=== PATIENT | female | born 2000 ===

== ENCOUNTER 2022-01-21 18:33 | Emergency (ER) | payer SELFPAY ==
[2022-01-21 20:06] VITALS: BP 116/69
[2022-01-21 20:40] LABS: Bilirubin,Urine NEG (Negative); Blood,Urine MOD (Negative); Color,Urine Yellow (Yellow); Mucus,Urine 1+ /HPF; Urobilinogen,Urine < 2.0 mg/dL (<2.0)
[2022-01-21 20:42] LABS: WBC,Urine > 182.0 /HPF (0.0-6.0)
[2022-01-21 21:05] LABS: Basophils # (Auto) 0.1 K/mm3 (0.0-0.1); Basophils % (Auto) 0.4 % (0.0-1.8); Eosinophils # (Auto) 0.2 K/mm3 (0.0-0.4); Hematocrit 33.6 % (30.3-42.9); Lymphocytes # (Auto) 1.2 K/mm3 (1.2-5.4); Lymphocytes % (Auto) 6.4 % (13.4-35.0); Mean Corpuscular HGB Conc 33 % (30-34); Mean Corpuscular Volume 82 fl (79-97); Monocytes # (Auto) 2.3 K/mm3 (0.0-0.8); Monocytes % (Auto) 12.3 % (0.0-7.3); Platelet Count 422 K/mm3 (140-440); Red Cell Distribution Width 14.9 % (13.2-15.2)
[2022-01-21 21:26] LABS: Alanine Aminotransferase 16 units/L (7-56); Albumin 4.1 g/dL (3.9-5); Blood Urea Nitrogen 8 mg/dL (7-17); Calcium 9.4 mg/dL (8.4-10.2); Hemolysis Index 7
[2022-01-21 21:28] LABS: BUN/Creatinine Ratio 20
[2022-01-21] MEDS ORDERED: MORPHINE 4 MG/1 ML INJ IV ONE (21:37)
[2022-01-21] MEDS ORDERED: SODIUM CHLORIDE 0.9% 1000 ML 1,000 ML IV ONE (21:37)
[2022-01-21] MEDS ORDERED: ONDANSETRON 4 MG/2 ML INJ IV ONE (21:37)
[2022-01-21] MEDS ORDERED: FAMOTIDINE 20 MG/2 ML INJ IV ONE (21:37)
[2022-01-21] MEDS ORDERED: cefTRIAXone/NS 1 GM/50 ML 1 GM/50 ML BAG IV ONE (21:38)
--- NOTE | 2022-01-21 23:41 | Ultrasound Report ---
ULTRASOUND ABDOMEN, LIMITED (RIGHT UPPER QUADRANT) INDICATION / CLINICAL INFORMATION: RUQ and right flank pain. COMPARISON: None available. FINDINGS: PANCREAS: Visualized portion shows no significant abnormality. LIVER: No significant abnormality. Normal hepatopedal blood flow in the main portal vein. GALLBLADDER: No significant abnormality. BILE DUCTS: No significant abnormality. Common bile duct measures 4-5 mm. FREE FLUID: None. ADDITIONAL FINDINGS: None. IMPRESSION: 1. No significant sonographic abnormality of the right upper quadrant. Of note, images of the right k idney were not obtained. There is concern for right hydronephrosis, additional imaging could be perfo rmed. Signer Name: Dangelo Corona MD Signed: 01/21/2022 11:36 PM Workstation Name: [id number]
--- NOTE | 2022-01-21 23:43 | Ultrasound Report ---
OBSTETRIC ULTRASOUND INDICATION: , abdominal pain COMPARISON: No prior relevant imaging studies are available for comparison. TECHNIQUE: Transabdominal imaging was performed. FINDINGS: Single viable intrauterine is identified. lie: Cephalic. Heart rate: 149 bpm. measurements are as follows: Biparietal diameter 4.6 cm, 20 weeks 0 days Head circumference 17.2 cm, 19 weeks 5 days Abdominal circumference 13.2 cm, 18 weeks 5 days Femur length 3.1 cm, 19 weeks 5 days Amniotic fluid index is subjectively within normal limits. There is a grade 1 anterior placenta. Hypo echoic focus within the placenta measuring 4.5 cm in maximum diameter may be a placental lanza. Cervix measures 3 cm. CONCLUSION: Single viable intrauterine currently in cephalic presentation with sonographic gestational age of 19 weeks 4 days. Amniotic fluid index is within normal limits. Signer Name: Dangelo Corona MD Signed: 01/21/2022 11:38 PM Workstation Name: [id number]
--- NOTE | 2022-01-22 00:25 | Emergency Department Report ---
ED Abdominal Pain HPI - General Chief Complaint: Abdominal Pain Stated Complaint: 18WKS /SEVERE ABD PAIN Source: patient Mode of arrival: Ambulatory Limitations: No Limitations - History of Present Illness Initial Comments: Patient is a A0 21-year-old female who is approximately 18 weeks gestation presents to the ED with complaint of acute onset persistent right upper quadrant and right flank pain that radiates to the lower back with urinary frequency and urgency and nausea for the last 8 hours. Patient states that the pain has been constant and persistent, worse with movement and sharp. Patient states that she did not take any medication prior to arrival in the ED. Patient denies fever, chills, vomiting, vaginal bleeding, vaginal discharge, traumatic injury, fall, heavy lifting, chest pain or shortness of breath, numbness and tingling or weakness of lower and upper extremities bilaterally or headache. MD Complaint: abdominal pain (Right upper quadrant and right flank pain), flank pain (Right flank pain) -: Sudden, hour(s) (8) Location: RUQ, R flank Radiation: RUQ, R flank Migration to: no migration Severity: severe Severity scale (0 -10): 8 Quality: aching, sharp Consistency: constant Improves With: nothing Worsens With: movement Context: other (18 weeks gestation) Associated Symptoms: denies other symptoms, nausea, anorexia. denies: vomiting, diarrhea, fever, constipation, dysuria, hematemesis, hematochezia, melena, hematuria, syncope, other - Related Data Previous Rx's Medication Instructions Recorded Last Taken Type Acetaminophen [Tylenol] 500 mg PO Q6HR PRN #30 tablet 01/22/22 Unknown Rx Ondansetron [Zofran Odt] 4 mg PO Q6HR PRN #15 tab.rapdis 01/22/22 Unknown Rx cephALEXin [Keflex] 500 mg PO Q6HR #40 capsule 01/22/22 Unknown Rx Allergies Allergy/AdvReac Type Severity Reaction Status Date / Time No Known Allergies Allergy Verified 01/21/22 19:55 ED Review of Systems ROS: Stated complaint: 18WKS /SEVERE ABD PAIN Other details as noted in HPI Constitutional: denies: chills, fever Eyes: denies: eye pain, eye discharge, vision change ENT: denies: ear pain, throat pain Respiratory: denies: cough, shortness of breath, wheezing Cardiovascular: denies: chest pain, palpitations Endocrine: no symptoms reported Gastrointestinal: abdominal pain (Right upper quadrant and right flank pain), nausea. denies: vomiting, diarrhea, constipation, hematemesis, hematochezia Genitourinary: urgency, frequency. denies: dysuria, discharge Musculoskeletal: back pain (Low back pain), myalgia. denies: joint swelling, arthralgia Skin: denies: rash, lesions Neurological: denies: headache, weakness, paresthesias Psychiatric: denies: anxiety, depression Hematological/Lymphatic: denies: easy bleeding, easy bruising ED Past Medical Hx - Past Medical History Previous Medical History?: Yes Hx Asthma: Yes - Surgical History Past Surgical History?: No - Medications Home Medications: Home Medications Medication Instructions Recorded Confirmed Last Taken Type Acetaminophen [Tylenol] 500 mg PO Q6HR PRN #30 tablet 01/22/22 Unknown Rx Ondansetron [Zofran Odt] 4 mg PO Q6HR PRN #15 tab.rapdis 01/22/22 Unknown Rx cephALEXin [Keflex] 500 mg PO Q6HR #40 capsule 01/22/22 Unknown Rx ED Physical Exam - General Limitations: No Limitations General appearance: alert, in no apparent distress - Head Head exam: Present: atraumatic, normocephalic, normal inspection - Eye Eye exam: Present: normal appearance, PERRL, EOMI Pupils: Present: normal accommodation - ENT ENT exam: Present: normal exam, normal orophraynx, mucous membranes moist, TM's normal bilaterally, normal external ear exam - Neck Neck exam: Present: normal inspection, full ROM. Absent: tenderness - Respiratory Respiratory exam: Present: normal lung sounds bilaterally. Absent: respiratory distress, wheezes, rales, chest wall tenderness, accessory muscle use, decreased breath sounds, prolonged expiratory - Cardiovascular Cardiovascular Exam: Present: normal rhythm, tachycardia, normal heart sounds. Absent: systolic murmur, diastolic murmur, rubs, gallop - GI/Abdominal GI/Abdominal exam: Present: soft, tenderness (Palpable right upper quadrant and right flank tenderness, negative Love sign), normal bowel sounds. Absent: guarding, rebound, hyperactive bowel sounds, hypoactive bowel sounds, organomegaly - Extremities Exam Extremities exam: Present: normal inspection, full ROM, normal capillary refill - Back Exam Back exam: Present: normal inspection, full ROM, tenderness (Palpable lumbosacral paraspinal musculoskeletal tenderness), CVA tenderness (R) (Right CVA tenderness), muscle spasm, paraspinal tenderness. Absent: CVA tenderness (L) - Neurological Exam Neurological exam: Present: alert, oriented X3, CN II-XII intact, normal gait, reflexes normal - Psychiatric Psychiatric exam: Present: normal affect, normal mood - Skin Skin exam: Present: warm, dry, intact, normal color. Absent: rash ED Course Vital Signs 01/21/22 01/21/22 19:52 21:55 Temperature 99.2 F Pulse Rate 116 H Respiratory 18 14 Rate Blood Pressure 116/69 [Right] O2 Sat by Pulse 98 Oximetry ED Medical Decision Making - Lab Data Result diagrams: 01/21/22 20:35 01/21/22 20:35 - Radiology Data Radiology results: report reviewed, image reviewed [facility] [address] [place] [address] Ultrasound Report Signed Patient: GEORGES COSTA Marilyn#: [id number] : 2000 Acct:[id number] Age/Sex: 21 / F ADM Date: 01/21/22 Loc: ED Attending Dr: Ordering Physician: JASON MCINTYRE Date of Service: 01/21/22 Procedure(s): US OB >= 14 weeks Fetus Accession Number(s): [id number] cc: JASON MCINTYRE OBSTETRIC ULTRASOUND INDICATION: , abdominal pain COMPARISON: No prior relevant imaging studies are available for comparison. TECHNIQUE: Transabdominal imaging was performed. FINDINGS: Single viable intrauterine is identified. lie: Cephalic. Heart rate: 149 bpm. measurements are as follows: Biparietal diameter 4.6 cm, 20 weeks 0 days Head circumference 17.2 cm, 19 weeks 5 days Abdominal circumference 13.2 cm, 18 weeks 5 days Femur length 3.1 cm, 19 weeks 5 days Amniotic fluid index is subjectively within normal limits. There is a grade 1 anterior placenta. Hypoechoic focus within the placenta measuring 4.5 cm in maximum diameter may be a placental lanza. Cervix measures 3 cm. CONCLUSION: Single viable intrauterine currently in cephalic presentation with sonographic gestational age of 19 weeks 4 days. Amniotic fluid index is within normal limits. Signer Name: Dangelo Corona MD Signed: 01/21/2022 11:38 PM Workstation Name: [id number] Transcribed By: SW Dictated By: Dangelo Corona MD Electronically Authenticated By: Dangelo Corona MD Signed Date/Time: 01/21/222337 DD/ 35 TD/TT: [facility] [address] [place] [address] Ultrasound Report Signed Patient: GEORGES COSTA Marilyn#: [id number] : 2000 Acct:[id number] Age/Sex: 21 / F ADM Date: 01/21/22 Loc: ED Attending Dr: Ordering Physician: JOHNSON SALEEM Date of Service: 01/21/22 Procedure(s): US abdomen limited Accession Number(s): [id number] cc: JOHNSON SALEEM ULTRASOUND ABDOMEN, LIMITED (RIGHT UPPER QUADRANT) INDICATION / CLINICAL INFORMATION: RUQ and right flank pain. COMPARISON: None available. FINDINGS: PANCREAS: Visualized portion shows no significant abnormality. LIVER: No significant abnormality. Normal hepatopedal blood flow in the main portal vein. GALLBLADDER: No significant abnormality. BILE DUCTS: No significant abnormality. Common bile duct measures 4-5 mm. FREE FLUID: None. ADDITIONAL FINDINGS: None. IMPRESSION: 1. No significant sonographic abnormality of the right upper quadrant. Of note, images of the right kidney were not obtained. There is concern for right hydronephrosis, additional imaging could be performed. Signer Name: Dangelo Corona MD Signed: 01/21/2022 11:36 PM Workstation Name: [id number] Transcribed By: SYDNEY Dictated By: Dangelo Corona MD Electronically Authenticated By: Dangelo Corona MD Signed Date/Time: 01/21/222335 DD/ 34 TD/TT: - Medical Decision Making This is a A0 21-year-old female who is approximately 18 weeks gestation presents to the ED with complaint of acute onset persistent right upper quadrant and right flank pain that radiates to the lower back with urinary frequency and urgency and nausea for the last 8 hours. Patient states that the pain has been constant and persistent, worse with movement and sharp. Patient states that she did not take any medication prior to arrival in the ED. in the ED, patient is alert and oriented x3 and is not in any distress. Patient is afebrile but tachycardic in triage and appears to be in significant pain. Patient was treated for pain in the ED and was given antiemetics, antacids and normal saline 1 L IV bolus x1. All lab test results were reviewed and are all nonactionable except for leukocytosis of 18,600, and significant urinary tract infection in urinalysis. Patient also received Rocephin 1 g IV x1. The rest of the lab test results were nonactionable. Transvaginal ultrasound showed a single viable intrauterine currently in cephalic presentation with sonographic gestational age of 19 weeks 4 days with a heart rate of 149 bpm. Amniotic fluid index is within normal limits. Gallbladder ultrasound showed no significant sonographic abnormality of the right upper quadrant. Of note, images of the right kidney were not obtained. There is concern for right hydronephrosis, additional imaging could be performed. On reevaluation, patient's pain is well controlled medication. Patient was discharged home on antibiotics and pain medications and advised to follow-up with her primary care physician in 5 to 7 days for reevaluation or return to the ED immediately if symptoms get worse. - Differential Diagnosis UTI; kidney stone; gallstones; cholecystitis; pyelonephritis; muscle spasm Critical care attestation.: If time is entered above; I have spent that time in minutes in the direct care of this critically ill patient, excluding procedure time. ED Disposition Clinical Impression: Acute urinary tract infection, Acute right flank pain, Abdominal pain during in second trimester Disposition: HOME / SELF CARE / HOMELESS Is pt being admited?: No Does the pt Need Aspirin: No Condition: Stable Instructions: Abdominal Pain (ED), Flank Pain, Adult, [id number], and Urinary Tract Infection, Urinary Tract Infection, Adult, [id number], Abdominal Pain During , [id number] Additional Instructions: All lab test results were reviewed and are all nonactionable except for leukocytosis of 18,600, and significant urinary tract infection in urinalysis. The rest of the lab test results were nonactionable. Transvaginal ultrasound showed a single viable intrauterine currently in cephalic presentation with sonographic gestational age of 19 weeks 4 days with a heart rate of 149 bpm. Amniotic fluid index is within normal limits. Gallbladder ultrasound showed no significant sonographic abnormality of the right upper quadrant. Of note, images of the right kidney were not obtained. There is concern for right hydronephrosis, additional imaging could be performed. Therefore take medications with food, drink plenty of fluids and follow-up with your [employer] physician in 5 to 7 days for reevaluation. Return to the ED immediately if symptoms get worse. Prescriptions: Acetaminophen [Tylenol] 500 mg PO Q6HR PRN #30 tablet PRN Reason: Pain , Severe (7-10) cephALEXin [Keflex] 500 mg PO Q6HR #40 capsule Ondansetron [Zofran Odt] 4 mg PO Q6HR PRN #15 tab.rapdis PRN Reason: Nausea Referrals: AL LYON MD [Staff Physician] - 3-5 Days Time of Disposition: 00:28 Print Language: ALBANIAN
== END 2022-01-22 01:30 | disposition home or self-care (01) ==
LOC: ED 18:33
DX: O23.42 Unspecified infection of urinary tract in pregnancy, second trimester (principal); N39.0 Urinary tract infection, site not specified; J45.909 Unspecified asthma, uncomplicated; Z3A.18 18 weeks gestation of pregnancy; Z79.899 Other long term (current) drug therapy
CPT/HCPCS: 36415; 76705; 76805; 80053; 81001; 84702; 85025; 96365; 96375; 99284; J0696; J2270; J2405; J3490; J7030; Q0162

== ENCOUNTER 2022-06-12 09:46 | Outpatient (CLI) | payer MEDICAID ==
[2022-06-12 10:44] VITALS: BP 109/71
== END 2022-06-12 11:10 | disposition home or self-care (01) ==
LOC: TRG 09:46 → APU 09:47 → TRG 11:10
PROVIDERS: ATTEND Obstetrics & Gynecology
DX: Z34.93 Encounter for supervision of normal pregnancy, unspecified, third trimester (principal); Z3A.39 39 weeks gestation of pregnancy
CPT/HCPCS: 59025

== ENCOUNTER 2022-06-18 04:41 | Inpatient (IN) | payer MEDICAID ==
[2022-06-18] MEDS ORDERED: LIDOCAINE (2%) 20 MG/1 ML VIAL 20 ML MDV INFILTRATI NR (06:44)
[2022-06-18] MEDS ORDERED: METHYLERGONOVINE MALEATE 0.2 MG/ML VIAL IM PRN (06:44)
[2022-06-18] MEDS ORDERED: ACETAMINOPHEN 325 MG TAB PO PRN ×2 (07:00→22:23)
[2022-06-18] MEDS ORDERED: ONDANSETRON 4 MG/2 ML INJ IV PRN ×2 (07:00→22:23)
[2022-06-18] MEDS ORDERED: OXYTOCIN DRIP 30 UNITS/500 ML BAG IV SCH ×2 (07:00)
[2022-06-18] MEDS ORDERED: OXYTOCIN 10 UNIT/1 ML INJ IM PRN (07:00)
[2022-06-18] MEDS ORDERED: CARBOPROST TROMETHAMINE 250 MCG/1 ML INJ IM PRN (07:00)
[2022-06-18] MEDS ORDERED: BUTORPHANOL 2 MG/1 ML INJ IV PRN (07:00)
[2022-06-18] MEDS ORDERED: miSOPROStol 200 MCG TAB PR PRN (07:00)
[2022-06-18] MEDS ORDERED: ePHEDrine SULFATE 50 MG/1 ML INJ IV PRN (07:00)
[2022-06-18] MEDS ORDERED: LOPERAMIDE 2 MG CAP PO PRN (07:00)
[2022-06-18] MEDS ORDERED: fentaNYL 100 MCG/2 ML INJ IV PRN (07:00)
[2022-06-18] MEDS ORDERED: LACTATED RINGERS 1,000 ML IV SCH (07:00)
[2022-06-18] MEDS ORDERED: NALOXONE 0.4 MG/1 ML INJ IV PRN (07:00)
[2022-06-18] MEDS ORDERED: TERBUTALINE 1 MG/1 ML INJ SUB-Q PRN (07:00)
[2022-06-18 07:27] LABS: Hematocrit 38.3 % (30.3-42.9); Hemoglobin 12.9 gm/dl (10.1-14.3); Mean Corpuscular HGB Conc 34 % (30-34); Mean Corpuscular Volume 84 fl (79-97); Platelet Count 345 K/mm3 (140-440); Red Blood Count 4.58 M/mm3 (3.65-5.03); Red Cell Distribution Width 15.9 % (13.2-15.2)
[2022-06-18 11:01] LABS: Hematocrit 37.3 % (30.3-42.9); Hemoglobin 12.4 gm/dl (10.1-14.3); Mean Corpuscular HGB Conc 33 % (30-34); Mean Corpuscular Volume 84 fl (79-97); Platelet Count 330 K/mm3 (140-440); Red Blood Count 4.44 M/mm3 (3.65-5.03); Red Cell Distribution Width 15.5 % (13.2-15.2)
[2022-06-18] MEDS ORDERED: MINERAL OIL 30 ML ORAL LIQD ONE (12:12)
--- NOTE | 2022-06-18 16:40 | History and Physical Report ---
History of Present Illness Date of examination: 06/18/22 Date of admission: 06/18/22 06:44 History of present illness: 21-year-old at 39+6 weeks who presents for induction of labor secondary to gestational hypertension not on medication. The patient initiated care in the first trimester of her . Her course is complicated by history of pyelonephritis during the and history of genital herpes for which the patient was on suppression therapy. She denies any recent prodrome. The patient is negative for GBS Past History Past Medical History: no pertinent history Past Surgical History: no surgical history Social history: single - Obstetrical History Expected Date of Delivery: 06/19/22 Actual Gestation: 39 Week(s) 6 Day(s) : 1 Para: 0 Hx # Term Pregnancies: 0 Number of Pregnancies: 0 Spontaneous Abortions: 0 Induced : 0 Number of Living Children: 0 Medications and Allergies Allergies Allergy/AdvReac Type Severity Reaction Status Date / Time No Known Allergies Allergy Verified 01/21/22 19:55 Home Medications Medication Instructions Recorded Confirmed Last Taken Type Acetaminophen [Tylenol] 500 mg PO Q6HR PRN #30 tablet 01/22/22 Unknown Rx Ondansetron [Zofran Odt] 4 mg PO Q6HR PRN #15 tab.rapdis 01/22/22 Unknown Rx cephALEXin [Keflex] 500 mg PO Q6HR #40 capsule 01/22/22 Unknown Rx Active Meds: Active Medications Acetaminophen (Acetaminophen 325 Mg Tab) 650 mg PO Q4H PRN PRN Reason: Pain, Mild (1-3) Butorphanol Tartrate (Butorphanol 2 Mg/1 Ml Inj) 1 mg IV Q2H PRN PRN Reason: Pain, Moderate(4-6) LABOR PAIN Carboprost Tromethamine (Carboprost Tromethamine 250 Mcg/1 Ml Inj) 250 mcg IM ONCE PRN PRN Reason: Uterine Bleeding Ephedrine Sulfate (Ephedrine Sulfate 50 Mg/1 Ml Inj) 10 mg IV Q2M PRN PRN Reason: Hypotension Fentanyl (Fentanyl 100 Mcg/2 Ml Inj) 100 mcg IV Q2H PRN PRN Reason: Pain,Severe (7-10) LABOR PAIN Oxytocin/Sodium Chloride (Pitocin/Ns 30 Unit/500ml) 30 units in 500 mls @ 2 mls/hr IV TITR NAYELY; Protocol Lactated Ringer's (Lactated Ringers) 1,000 mls @ 125 mls/hr IV DIRECT NAYELY Oxytocin/Sodium Chloride (Pitocin/Ns 30 Unit/500ml) 30 units in 500 mls @ 40 mls/hr IV TITR NAYELY; Protocol Loperamide HCl (Loperamide 2 Mg Cap) 2 mg PO ONCE PRN PRN Reason: give with Hemabate Methylergonovine Maleate (Methylergonovine Maleate 0.2 Mg/Ml Vial) 0.2 mg IM ONCE PRN PRN Reason: Uterine Bleeding Mineral Oil (Mineral Oil 30 Ml Oral Liqd) 30 ml PO QHS PRN PRN Reason: Constipation Naloxone HCl (Naloxone 0.4 Mg/1 Ml Inj) 0.1 mg IV Q2MIN PRN PRN Reason: Res Rate </= 8 or 02 SAT < 92% Ondansetron HCl (Ondansetron 4 Mg/2 Ml Inj) 4 mg IV Q8H PRN PRN Reason: Nausea And Vomiting Oxytocin (Oxytocin 10 Unit/1 Ml Inj) 10 unit IM ONCE PRN PRN Reason: Uterine Bleeding Terbutaline Sulfate (Terbutaline 1 Mg/1 Ml Inj) 0.25 mg SUB-Q ONCE PRN PRN Reason: Hyperstimulation/Hypertonicity Review of Systems All systems: negative - Vital Signs Vital signs: Vital Signs Pulse BP Pulse Ox 93 H 141/90 98 06/18/22 05:08 06/18/22 05:08 06/18/22 05:08 Temp Pulse Resp BP Pulse Ox 98.6 F 131 H 140/91 98 06/18/22 10:45 06/18/22 16:22 06/18/22 12:21 06/18/22 16:22 - Physical Exam Breasts: Positive: deferred Cardiovascular: Regular rate Lungs: Positive: Clear to auscultation Abdomen: Positive: normal appearance Results Result Diagrams: 06/18/22 10:16 Abnormal lab results 06/18/22 06/18/22 Range/Units 07:03 10:16 WBC 11.5 H 12.3 H (4.5-11.0) K/mm3 RDW 15.9 H 15.5 H (13.2-15.2) % All other labs normal. Assessment and Plan - Patient Problems (1) Gestational hypertension Current Visit: Yes Status: Acute Plan to address problem: Admit to labor and delivery Initiate augmentation of labor
--- NOTE | 2022-06-18 16:42 | Procedure Note ---
OB Delivery Note - Delivery Date of Delivery: 06/18/22 Surgeon: POPPY LARRY Estimated blood loss: 300cc - Vaginal Delivery presentation: vertex Delivery position: OA Intrapartum events: other(please specify) (Gestational hypertension) Delivery monitor: external FHT, external uterine Route of delivery: Delivery placenta: spontaneous Delivery cord: nuchal cord, 3 umbilical vessels Delivery laceration: none Anesthesia: none Delivery comments: The patient progressed to complete complete +1 post to deliver a liveborn female with Apgars of 7 and 8 weight 8 pounds 6 ounces. After delivery of the head the patient was noted to have a tight nuchal cord that had to be surgically reduced. The shoulders delivered then without difficulty. The was placed on the warmer for further evaluation. The placenta delivered spontaneously intact with three-vessel cord. No lacerations were noted. Patient experienced uterine atony for which 800 mcg of Cytotec were placed per rectum. Estimated blood loss of 300 mL - Infant A at 1 minute: 7 at 5 minutes: 8 (Weight 6 8 pounds 6 ounces)
[2022-06-18] MEDS ORDERED: MINERAL OIL 30 ML ORAL LIQD PO PRN (22:00)
[2022-06-18] MEDS ORDERED: WITCH HAZEL/ GLYCERIN PAD TP PRN (22:23)
[2022-06-18] MEDS ORDERED: MAGNESIUM HYDROXIDE (MOM) ORAL LIQD UDC PO PRN (22:23)
[2022-06-18] MEDS ORDERED: LANOLIN/ZINC/DIMETHICONE (LANSINOH) 7 GM TP PRN (22:23)
[2022-06-18] MEDS ORDERED: HYDROcodone/ACETAMINOPHEN 5-325 MG TAB PO PRN (22:23)
[2022-06-18] MEDS ORDERED: PROMETHAZINE 25 MG RECT SUPP PR PRN (22:23)
[2022-06-18] MEDS ORDERED: diphenhydrAMINE 25 MG CAP PO PRN (22:23)
[2022-06-18] MEDS ORDERED: PROMETHAZINE 25 MG TAB PO PRN (22:23)
[2022-06-18] MEDS: IBUPROFEN 800 MG TAB PO SCH (23:24)
[2022-06-19 04:27] LABS: Hematocrit 32.9 % (30.3-42.9); Hemoglobin 11.3 gm/dl (10.1-14.3)
[2022-06-19] MEDS: IBUPROFEN 800 MG TAB PO SCH ×2 (06:36→15:58)
--- NOTE | 2022-06-19 09:44 | Progress Note ---
Assessment and Plan - Patient Problems (1) Gestational hypertension Current Visit: Yes Status: Acute Plan to address problem: Patient doing well Discharge home tomorrow Subjective - Subjective Date of service: 06/19/22 Interval history: Patient is without any significant complaints. She reports having some uterine cramping and her lochia is moderate. She is tolerating regular diet Patient reports: appetite normal, voiding normally, pain well controlled Criders: doing well Objective - Vital Signs Latest vital signs: Vital Signs Temp Pulse Resp BP BP Pulse Ox Pulse Ox 06/19/22 07:36 18 06/19/22 06:36 18 06/19/22 05:11 98.0 F 88 18 111/71 98 06/19/22 00:24 18 06/18/22 23:24 18 06/18/22 22:01 99.5 F 99 H 20 131/71 98 100 06/18/22 21:24 96 H 98 06/18/22 21:19 114 H 117/68 98 06/18/22 21:17 99.6 F 110 H 18 117/68 06/18/22 17:58 90 128/68 06/18/22 17:44 95 H 131/66 06/18/22 17:29 98 H 105/70 06/18/22 17:13 89 122/58 06/18/22 16:59 89 99 06/18/22 16:58 96 H 125/60 06/18/22 16:54 98 H 100 06/18/22 16:49 96 H 100 06/18/22 16:45 98.4 F 06/18/22 16:44 104 H 135/75 100 06/18/22 16:22 131 H 98 06/18/22 16:17 116 H 98 06/18/22 16:12 103 H 98 06/18/22 16:07 120 H 98 06/18/22 16:01 107 H 98 06/18/22 15:55 95 H 98 06/18/22 15:50 110 H 99 06/18/22 15:45 110 H 99 06/18/22 15:40 105 H 94 06/18/22 15:39 94 H 98 06/18/22 15:34 84 98 06/18/22 15:28 108 H 98 06/18/22 15:23 90 97 06/18/22 15:18 99 H 99 06/18/22 15:13 64 94 06/18/22 14:56 104 H 94 06/18/22 14:53 101 H 97 06/18/22 14:48 98 H 99 06/18/22 14:43 104 H 100 06/18/22 14:38 91 H 98 06/18/22 14:33 99 H 98 06/18/22 14:28 97 H 99 06/18/22 14:23 99 H 100 06/18/22 14:21 87 92 06/18/22 14:18 101 H 98 06/18/22 14:13 104 H 99 06/18/22 14:08 101 H 100 06/18/22 14:03 96 H 98 06/18/22 13:58 110 H 99 06/18/22 13:53 99 H 98 06/18/22 13:48 96 H 98 06/18/22 13:43 90 98 06/18/22 13:38 100 H 99 06/18/22 13:33 104 H 99 06/18/22 13:28 105 H 98 06/18/22 13:23 93 H 98 06/18/22 13:18 98 H 99 06/18/22 13:13 95 H 100 06/18/22 13:08 96 H 99 06/18/22 13:03 105 H 96 06/18/22 12:58 108 H 99 06/18/22 12:53 104 H 99 06/18/22 12:48 101 H 99 06/18/22 12:43 102 H 99 06/18/22 12:38 99 H 99 06/18/22 12:33 100 H 99 06/18/22 12:28 102 H 100 06/18/22 12:25 84 94 06/18/22 12:23 101 H 100 06/18/22 12:21 103 H 140/91 06/18/22 12:18 107 H 100 06/18/22 12:13 104 H 100 06/18/22 12:08 107 H 100 06/18/22 12:03 107 H 99 06/18/22 11:58 94 H 99 06/18/22 11:53 98 H 83 L 07 11:44 159 H 89 06/18/22 11:38 100 H 97 06/18/22 11:33 96 H 96 06/18/22 11:28 97 H 98 06/18/22 11:24 107 H 93 06/18/22 11:23 99 H 97 06/18/22 11:18 99 H 94 06/18/22 11:13 99 H 98 06/18/22 11:08 96 H 96 06/18/22 11:03 103 H 83 L 06/18/22 10:45 98.6 F 06/18/22 10:44 98 H 131/82 06/18/22 10:42 103 H 99 06/18/22 10:37 99 H 98 06/18/22 10:32 99 H 98 Intake and Output 06/18/22 06/19/22 06/19/22 22:59 06:59 14:59 Intake Total 480 Output Total 250 Balance 230 Intake: Intake, Free Water 480 Output: Urine 250 Void 250 Other: Total, Output Amount 250 # Voids Void 1 Estimated Blood Loss 300 - Exam Uterus: Present: normal, firm - Labs Labs: Abnormal lab results 06/18/22 Range/Units 10:16 WBC 12.3 H (4.5-11.0) K/mm3 RDW 15.5 H (13.2-15.2) %
--- NOTE | 2022-06-19 09:46 | Discharge Summary ---
Providers - Providers Date of Admission: 06/18/22 06:44 Date of discharge: 06/20/22 Attending physician: ADINA PICKARD Primary care physician: ADINA PICKARD Hospitalization Reason for admission: induction of labor Delivery: Discharge diagnosis: IUP at term delivered Hospital course: The patient was admitted for induction secondary to gestational hypertension. She had a successful vaginal delivery. course was uneventful. Condition at discharge: Good Disposition: 01 HOME / SELF CARE / HOMELESS - Discharge Diagnoses (1) Gestational hypertension Status: Acute Plan - Discharge Medications Prescriptions: Ibuprofen [Motrin] 800 mg PO Q8HR PRN #30 tablet PRN Reason: Pain , Severe (7-10) HYDROcodone/APAP 5-325 [[place] 5/325] 1 each PO Q6HR PRN #15 tablet PRN Reason: Pain - Provider Discharge Summary Activity: no sex for 6 weeks, no heavy lifting 4 weeks, no strenuous exercise Diet: routine Instructions: routine Additional instructions: [] Smoking cessation referral if applicable(refer to patient education folder for contact #) [] Refer to [facility] Booklet Call your doctor immediately for: * Fever > 100.5 * Heavy vaginal bleeding ( >1 pad per hour) * Severe persistent headache * Shortness of breath * Reddened, hot, painful area to leg or breast * Schedule visit in 4 weeks - Follow up plan
[2022-06-20] MEDS: IBUPROFEN 800 MG TAB PO SCH ×3 (02:38→16:33)
[2022-06-20 17:25] VITALS: BP 149/96
== END 2022-06-20 17:40 | disposition home or self-care (01) | DRG 775 ==
LOC: TRG 04:41 → APU 04:43 → TRG 07:33 → LD 09:53 → OB 22:22
PROVIDERS: ADMIT Obstetrics & Gynecology; ATTEND Obstetrics & Gynecology
PROC: 10E0XZZ Delivery of Products of Conception, External Approach (ICD-10-PCS; principal; 2022-06-18)
PROC: 10907ZC Drainage of Amniotic Fluid, Therapeutic from Products of Conception, Via Natural or Artificial Opening (ICD-10-PCS; 2022-06-18)
DX: O13.4 Gestational [pregnancy-induced] hypertension without significant proteinuria, complicating childbirth (principal); Z37.0 Single live birth; Z3A.39 39 weeks gestation of pregnancy; Z20.822 Contact with and (suspected) exposure to COVID-19; O69.81X0 Labor and delivery complicated by cord around neck, without compression, not applicable or unspecified
CPT/HCPCS: 36415; 59025; 85014; 85018; 85027; 86592; 86850; 86900; 86901; G0378; Q0169; U0003